=== PATIENT | female | born 1960 | race Caucasian/White ===

== ENCOUNTER 2018-11-27 13:12 | Emergency (ER) | payer BC, OTHER ==
[~2018-11-27] VITALS: Ht 170.2 cm; Wt 62.0 kg
[2018-11-27 13:49] LABS: BASOPHILS # (AUTO) 0.02 x10^3/uL (0-0.1); BASOPHILS % (AUTO) 1 % (0-1); EOSINOPHILS # (AUTO) 0.05 x10^3/uL (0-0.4); EOSINOPHILS % (AUTO) 1 % (1-7); LYMPHOCYTES # (AUTO) 1.36 x10^3/uL (1-3.4); LYMPHOCYTES % (AUTO) 35 % (22-44); MD NO; MEAN CORPUSCULAR HEMOGLOBIN 34.3 pg (27.0-34.8); MEAN CORPUSCULAR HGB CONC 33.2 g/dL (32.4-35.8); MEAN CORPUSCULAR VOLUME 103.3 fL (80-100); MEAN PLATELET VOLUME 9.7 fL (7.4-10.4); MONOCYTES # (AUTO) 0.39 x10^3/uL (0.2-0.8); MONOCYTES % (AUTO) 10 % (2-9); NEUTROPHILS # (AUTO) 2.09 x10^3/uL (1.8-6.8); NEUTROPHILS % (AUTO) 54 % (42-75); PLATELET COUNT 174 x10^3/uL (130-400); RED BLOOD COUNT 4.29 x10^6/uL (3.82-5.3); RED CELL DISTRIBUTION WIDTH 13.1 % (9.6-15.2)
[2018-11-27 14:00] LABS: ANION GAP 8 mmol/L (5-15); CHLORIDE 107 mmol/L (98-107); CREATININE 0.87 mg/dL (0.55-1.02)
--- NOTE | 2018-11-27 14:37 | NUR ---
FROM LOBBY TO ROOM AT THIS TIME
--- NOTE | 2018-11-27 14:56 | NUR ---
58 YO FEMALE CAME IN TODAY WITH BILAT LOWER EXTREM TINGLING. PT DENIES PAIN AND STATES SHE IS ABLE TO DO ALL NORMAL ACTIVITIES WITHOUT DIFFICULTY. PT DENIES ANY HX OF THIS. PT IS CONNECTED TO ALL MONITORS AT THIS TIME. CALL LIGHT WITHIN REACH AND AT BEDSIDE.
[2018-11-27 14:58] VITALS: BP 149/84
--- NOTE | 2018-11-27 14:58 | NUR ---
MD AT BEDSIDE TO ASSESS PT
[2018-11-27] MEDS ORDERED: DIPH,PERTUSS(ACELL),TET VAC/PF 0.5 ML IM-VACC ONE ×2 (15:30)
--- NOTE | 2018-11-27 15:39 | NUR ---
Patient/Caregiver given discharge instructions and they have confirmed that they understand the instructions. Patient ambulatory with steady gait.
== END 2018-11-27 15:40 | disposition home or self-care (01) ==
LOC: ED 15:34
DX: R20.2 Paresthesia of skin (principal); R73.9 Hyperglycemia, unspecified
CPT/HCPCS: 36415; 80048; 82040; 85025; 90471; 90715; 93005